=== PATIENT | male | born 1995 ===

== ENCOUNTER 2018-05-02 02:24 | Emergency (ER) | payer SELFPAY ==
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
== END 2018-05-02 05:02 | disposition left against medical advice (07) ==
LOC: ERS 02:24
DX: S02.2XXA Fracture of nasal bones, initial encounter for closed fracture (principal); S81.012A Laceration without foreign body, left knee, initial encounter; S81.812A Laceration without foreign body, left lower leg, initial encounter; F41.9 Anxiety disorder, unspecified; Y04.8XXA Assault by other bodily force, initial encounter
CPT/HCPCS: 70450; 70486; 72125; 93005